=== PATIENT | female | born 1950 | race Caucasian/White ===

== ENCOUNTER 2017-12-01 14:39 | Emergency (ER) | payer OTHER, BC ==
--- NOTE | 2017-12-01 14:41 | PDOC ---
History of Present Illness - General History Source: Patient Exam Limitations: No Limitations - History of Present Illness Initial Comments: 12/01/17 15:12 The patient is a 67-year-old female with past medical history significant for DM , daily use of baby ASA, and hx of murmur presents to the emergency department with s/p a fall. 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 The patient was trying to picker machine operator some papers from the 2nd stair when she lost balance and slipped, causing an injury to the back of her head. The patient states she hit her head on the corner surface of a table nearby. The patient presents via EMS, with a small laceration to the back of the head. The patient reports associated symptom of a headache denies LOC or vomiting. The patient reports she took a baby ASA today. The patient is unable to recall her last tetanus shot. Denies nausea, vomiting, chest pain, SOB. Allergies: methotrexate and tetracycline PCP: None reported <Yamilka Ozuna - Last Filed: 12/01/17 15:30> <Andrew Castañeda - Last Filed: 12/01/17 16:35> - General Chief Complaint: Injury Stated Complaint: FELL OFF STAIRS Time Seen by Provider: 12/01/17 14:41 Past History - Past Medical History Diabetes: Yes Other medical history: Hx of heart murmur. <Yamilka Ozuna - Last Filed: 12/01/17 15:30> <Andrew Castañeda - Last Filed: 12/01/17 16:35> - Past Medical History Allergies/Adverse Reactions: Allergies Allergy/AdvReac Type Severity Reaction Status Date / Time methotrexate AdvReac Verified 12/01/17 15:05 tetracycline AdvReac Verified 12/01/17 15:05 Home Medications: Ambulatory Orders Aspirin [ASA -] 81 mg PO DAILY 12/01/17 Atorvastatin Ca [Lipitor] 20 mg PO HS 12/01/17 Calcium Carbonate [Calcium] 600 mg PO DAILY 12/01/17 Cholecalciferol (Vitamin D3) [Vitamin D3 -] 2,000 unit PO DAILY 12/01/17 Glyburide 5 mg PO BID 12/01/17 Magnesium 25 mg PO DAILY 12/01/17 Metformin HCl [Glucophage] 1,000 mg PO BID 12/01/17 Ranitidine HCl [Zantac] 150 mg PO DAILY 12/01/17 Review of Systems - Review of Systems Comments:: 12/01/17 14:57 Constitutional: Yes: Symptoms Reported, See HPI, Night Sweats. No: Chills, Diaphoresis, Fever, Loss of Appetite, Malaise, Weakness, Weight Stable, Unintentional Wgt. Loss, Unexplained wgt Loss, Other HEENTM: Yes: (+) s/p a fall with injury to the posterior head. Symptoms Reported , See HPI. No: Eye Pain, Blurred Vision, Tearing, Recent change in vision, Double Vision, Cataracts, Ear Pain, Ocular Prothesis, Ear Discharge, Nose Pain, Nose Congestion, Tinnitus, Nose Bleeding, Hearing Loss, Throat Pain, Throat Swelling, Mouth Pain, Dental Problems, Difficulty Swallowing, Mouth Swelling, Other Respiratory: Yes: Symptoms reported, See HPI. No: Cough, Orthopnea, Shortness of Breath, SOB with Exertion, SOB at Rest, Stridor, Wheezing, Productive cough, Hemoptysis, Other Cardiac (ROS): Yes: Symptoms Reported, See HPI. No: Chest Pain, Edema, Irregular Heart Rate, Lightheadedness, Palpitations, Syncope, Chest Tightness, Other ABD/GI: Yes: Symptoms Reported, See HPI. No: Abdominal Distended, Abd. Pain w/ defecation, Blood Streaked Bowels, Constipated, Diarrhea, Difficulty Swallowing , Nausea, Poor Appetite, Poor Fluid Intake, Rectal Bleeding, Vomiting, Indigestion, Abdominal cramping, Tarry Stools, Other : Yes: Symptoms Reported, See HPI Musculoskeletal: Yes: Symptoms Reported, See HPI. No: Back Pain, Gout, Joint Pain, Joint Swelling, Muscle Pain, Muscle Weakness, Neck Pain, Joint Stiffness, Other Integumentary: Yes: Symptoms Reported, See HPI. No: Bruising, Change in Color, Change in Hair/Nails, Dryness, Erythema, Flushing, Lesions, Lumps, Pallor, Pruritus, Rash, Sweating, Other Neurological: Yes: Symptoms reported, See HPI. No: Headache, Numbness, Paresthesia, Pre-Existing Deficit, Seizure, Tingling, Tremors, Weakness, Unsteady Gait, Ataxia, Dizziness, Other All Other Systems: Reviewed and Negative <Yamilka Ozuna - Last Filed: 12/01/17 15:30> *Physical Exam - Physical Exam Comments: 12/01/17 14:59 General Appearance: Yes: Appropriately Dressed, Nourished. No: Apparent Distress, Disheveled, Mild Distress, Moderate Distress, Severe Distress, Alcohol on Breath, Intoxicated, Cachetic, Obese, Thin, Other HEENT: positive: (+) 6 cm linear laceration to the occipital area with controlled bleeding, no swelling. EOMI, JAYDEN, Normal ENT Inspection, Normal Voice, TMs Normal, Pharynx Normal. negative: Symmetrical, Pale Conjunctivae, Photophobia, Scleral Icterus (R), Scleral Icterus (L), Muffled/Hoarse voice, Pharyngeal Erythema, Tonsillar Exudate, Tonsillar Erythema, Nasal Congestion, Rhinorrhea, Sinus Tenderness, Orbits, Hearing Decreased, Hearing Grossly Normal , TM Bulging, TM Dull, TM Erythema, Lesions, Parrish, Excessive drooling, Thrush, Other Neck: positive: Trachea midline, Normal Thyroid, Supple. negative: Tender, Rigid, Carotid bruit, Decreased range of motion, Stridor, Lymphadenopathy (R), Lymphadenopathy (L), Rigidity, Tender lateral, Tender midline, Thyromegaly, Other Respiratory/Chest: positive: Lungs Clear, Normal Breath Sounds. negative: Accessory Muscle Use, Chest Tender, Respiratory Distress, Labored Respiration, Rapid RR, Decreased Breath Sounds, Paradoxal Breathing, Crackles, Rales, Rhonchi , Stridor, Wheezing, Dullness, Hyperresonant, Plerual Rub, Other Cardiovascular: positive: (+)4/6 systolic ejection murmur. Regular Rate, Regular Rhythm, S1, S2. negative: Edema, JVD, Bradycardia, Tachycardia, Diastolic Murmur, Systolic Murmur, Gallop/S3, Gallop/S4, Irregularly Irregular, Irregular, Other Vascular Pulses: Femoral (R): 4+, Femoral (L): 4+, Carotid (R): 4+, Carotid (L) : 4+, Dorsalis-Pedis (R): 4+, Doralis-Pedis (L): 4+ Gastrointestinal/Abdominal: positive: Normal Bowel Sounds, Flat, Soft. negative : Tender, Organomegaly, Pulsatile Mass, Increased Bowel Sounds, Decreased BS, Protuberent, Distended, Guarding, Rebound, Tenderness, Hernia, Mass, Hepatomegaly, Spleenomegaly, Other Musculoskeletal: positive: Normal Inspection. negative: CVA Tenderness, CVA Tenderness (R), CVA Tenderness (L), Decreased Range of Motion, Muscle Spasm, Vertebral Tenderness, Other Extremity: positive: Normal Capillary Refill, Normal Inspection, Normal Range of Motion. negative: Tender, Pelvis Stable, Coldness, Cyanosis, Delayed Capillary Refill, Pedal Edema, Swelling, Calf Tenderness, Erythema, Inflammation , Other Integumentary: positive: Normal Color, Dry, Warm. 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 negative: Abnormal Cranial NS, Respond to painful stimul, Responsive, EOM Palsy, Facial Droop, Numbness, Sensory Deficit, Finger to Nose, Confused, Disoriented, Depressed Affect, Babinski, Other <Yamilka Ozuna - Last Filed: 12/01/17 15:30> Progress Note - Progress Note Progress Note: Procedure: 6 dyllan placed in occipital area pt tolerated procedure well. CT head Negative for fracture or bleed Pt is doing well, discussed with daughter as well Needs to remove dyllan in 7 days Head injury handout given If worsen to return to ER Also advised patient to follow up with her [facility] for her aortic stenosis <Andrew Castañeda - Last Filed: 12/01/17 16:35> *DC/Admit/Observation/Transfer - Attestations Scribe Attestion: 12/01/17 15:04 Documentation prepared by Yamilka Ozuna, acting as medical support assistant for Andrew Castañeda MD. <Yamilka Ozuna - Last Filed: 12/01/17 15:30> - Discharge Dispostion Decision to Admit order: No <Andrew Castañeda - Last Filed: 12/01/17 16:35> Diagnosis at time of Disposition: Head injury Qualifiers: Encounter type: initial encounter Qualified Code(s): S09.90XA - Unspecified injury of head, initial encounter Laceration of head Qualifiers: Encounter type: initial encounter Location of open wound of head: scalp Foreign body presence: without foreign body Qualified Code(s): S01.01XA - Laceration without foreign body of scalp, initial encounter - Discharge Dispostion Disposition: HOME Condition at time of disposition: Improved - Patient Instructions Printed Discharge Instructions: DI for Closed Head Injury, DI for Laceration Repair of the Scalp Additional Instructions: Ice, Tylenol, rest Head injury handout If worsen return to ER Remove dyllan in 7 days
[2017-12-01] MEDS ORDERED: DIPHTH,PERTUSS(ACELL),TET 0.5 ML DISP.SYRIN IM ONE (14:50)
[2017-12-01 15:01] VITALS: BP 172/83; PULSE 87; TEMP 98.3; BMI 29.2
== END 2017-12-01 16:53 | disposition home or self-care (01) ==
LOC: FER 14:39
PROC: 3E0234Z Introduction of Serum, Toxoid and Vaccine into Muscle, Percutaneous Approach (ICD-10-PCS; principal; 2017-12-01)
PROC: 0HQ0XZZ Repair Scalp Skin, External Approach (ICD-10-PCS; 2017-12-01)
DX: S01.01XA Laceration without foreign body of scalp, initial encounter (principal); S09.90XA Unspecified injury of head, initial encounter; E11.9 Type 2 diabetes mellitus without complications; Z79.82 Long term (current) use of aspirin; W10.9XXA Fall (on) (from) unspecified stairs and steps, initial encounter; Y93.89 Activity, other specified; Y92.008 Other place in unspecified non-institutional (private) residence as the place of occurrence of the external cause; R01.1 Cardiac murmur, unspecified; Z95.5 Presence of coronary angioplasty implant and graft
CPT/HCPCS: 70450-TC; 90715; 99282-25

== ENCOUNTER 2018-04-26 11:08 | Emergency (ER) | payer OTHER ==
--- NOTE | 2018-04-26 11:12 | PDOC ---
History of Present Illness - General Chief Complaint: Toothache Stated Complaint: SWOLLEN SALIVARY GLAND Time Seen by Provider: 04/26/18 11:11 History Source: Patient - History of Present Illness Initial Comments: 04/26/18 11:22 The patient is a 68 year old female with a PMH of NIDDM, Rheumatoid Arthritis, GERD, Heart Murmur who presents to our ED c/o tongue swelling and right submandibular gland swelling. Patient started feeling the pain in her gums and jaw on and went to her dentist. Her dentist sent her to an oral surgeon who took a cat scan and found a stone in her L submandibular gland. Patient was started on Augmentin (875 mg BID) and scheduled for surgery on May. States she came to the ED today because the pain increased and she felt her tongue was swelling and she was having difficulty swallowing. Reports fever of 100 degrees Farenheit yesterday evening for which she took Tylenol. The patient denies chest pain, shortness of breath, abdominal pain, nausea/ vomiting, diarrhea/constipation,dysuria/hematuria. Allergy: Epinephrine, MTX, Tetracycline (rectal bleed) Surgical: Cholecystectomy, L ankle fracture pinning Social: denies toxic habits PMD: Dr. Andrew Contreras (cardiology, however patient sees cardiology for primary care) Oral surgeon: Rakesh Russo As per EMR, patient last evaluated in our ED in 12/2017 for scalp staple removal following a mechanical fall. Past History - Past Medical History Allergies/Adverse Reactions: Allergies Allergy/AdvReac Type Severity Reaction Status Date / Time epinephrine Allergy Unknown Verified 04/26/18 11:10 methotrexate AdvReac Verified 04/26/18 11:10 tetracycline AdvReac Verified 04/26/18 11:10 Home Medications: Ambulatory Orders Aspirin [ASA -] 81 mg PO DAILY 12/01/17 Atorvastatin Ca [Lipitor] 20 mg PO HS 12/01/17 Calcium Carbonate [Calcium] 600 mg PO DAILY 12/01/17 Cholecalciferol (Vitamin D3) [Vitamin D3 -] 2,000 unit PO DAILY 12/01/17 Glyburide 5 mg PO DAILY 12/01/17 Magnesium 25 mg PO DAILY 12/01/17 Metformin HCl [Glucophage] 1,000 mg PO BID 12/01/17 Ranitidine HCl [Zantac] 150 mg PO BID 12/01/17 Amoxicillin/Potassium Clav [Augmentin 875-125 Tablet] 1 each PO BID 04/26/18 Ascorbate Calcium [Vitamin C] 500 mg PO DAILY 04/26/18 Bimatoprost [Lumigan] 1 drop OS DAILY 04/26/18 Brimonidine Tartrate/Timolol [Combigan Eye Drops] 1 drop OU BID 04/26/18 Etanercept [Enbrel] 50 mg SQ WEEKLY 04/26/18 Glyburide 10 mg PO HS 04/26/18 COPD: No Diabetes: Yes - Suicide/Smoking/Psychosocial Hx Smoking History: Never smoked Have you smoked in the past 12 months: No Hx Alcohol Use: No Drug/Substance Use Hx: No Substance Use Type: None Review of Systems - Review of Systems Constitutional: Yes: Fever. No: Chills HEENTM: No: Recent change in vision Respiratory: No: Cough, Shortness of Breath, Stridor, Wheezing Cardiac (ROS): No: Chest Pain, Lightheadedness, Palpitations, Syncope ABD/GI: No: Constipated, Diarrhea, Nausea, Vomiting *Physical Exam - Physical Exam General Appearance: Yes: Nourished, Appropriately Dressed HEENT: positive: Normal Voice, Hearing Grossly Normal, Other (L submandidbular TTP and edema, with palpable non-fluctuant mass; hematoma @ 5'o clock position with area of purulence on floor of oral cavity) Neck: positive: Trachea midline, Supple Respiratory/Chest: positive: Lungs Clear, Normal Breath Sounds Cardiovascular: positive: S1, S2, Murmur Gastrointestinal/Abdominal: positive: Normal Bowel Sounds, Soft Extremity: positive: Normal Capillary Refill, Normal Inspection Integumentary: positive: Normal Color, Dry, Warm Neurologic: positive: Fully Oriented, Alert ED Treatment Course - LABORATORY CBC & Chemistry Diagram: 04/26/18 12:30 04/26/18 12:30 Medical Decision Making - Medical Decision Making 04/26/18 11:26 68 year old female with L submandibular swelling and pain, h/o fever. States she was evaluated with facial CT that showed submandibular gland stone, scheduled for surgery on 05/09/17. Mildly tachycardic (HR 103), Hypertensive (169 /88) other VS unremarkable. L submandibular TTP, no erythema/edema, with hematoma and small purulent discharge in floor of oral cavity. As patient is currently afebrile, no signs of infection outside of sialdeniatis, will give pain control and discuss case with oral surgeon. Likely disposition is discharge home. 04/26/18 11:[address] Hoffmann 04/26/18 11:37 Case d/w Dr. Aramis Bo, ENT - states operative intervention by oral surgeon, not ENT 04/26/18 11:57 Patient reassessed @ bedside s/p Tylenol for pain Counseled on plan of care including possible discharge and self transport to [facility] vs. admission for IV antibiotics vs. 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 Patient is hemodynamically stable, pain well controlled. Awaiting call from patient's surgeon 04/26/18 12:11 Case d/w patient's surgeon - agrees with OTD of Unasym and discharge home 04/26/18 12:13 Case d/w patient amenable with plan of care 04/26/18 13:38 CBC shows leukocytosis 15, c/w active infection CMP unremarkable 04/26/18 13:58 VSS Symptomatically improved. Will discharge with instruction to f[facility] [facility] [place] [place] if symptoms persist or with oral surgeon after the weekend. Clinical Impression: Sialadenitis I discussed the physical exam findings, ancillary test results and final diagnoses with the patient. I answered all of the patient's questions. The patient was satisfied with the care received and felt comfortable with the discharge plan and treatment plan. The patient will return to the Emergency Department with any new, persistent or worsening symptoms. *DC/Admit/Observation/Transfer Diagnosis at time of Disposition: Sialadenitis - Discharge Dispostion Disposition: HOME Condition at time of disposition: Good - Referrals Referrals: Andrew Contreras [Primary Care Provider] - - Patient Instructions Printed Discharge Instructions: DI for Dental Pain Additional Instructions: Please keep your previously scheduled follow up appointment with the oral surgeon Return to the Emergency Department immediately for any new/worsening/concerning symptoms including continous fever or severe pain. - Post Discharge Activity
--- NOTE | 2018-04-26 11:14 | PDOC ---
Attending Attestation - Resident Resident Name: PilarKaren - ED Attending Attestation I have performed the following: I have examined & evaluated the patient, The case was reviewed & discussed with the resident, I agree w/resident's findings & plan, Exceptions are as noted - HPI HPI: 04/26/18 12:46 Ms Iyer is a 68 yo F who presents to the ER for evaluation of a swollen salivary gland Pt was seen by OMFS yesterday who discovered a stone in the salivary duct, started pt on Augmentin Pt was told to come to the ER if her symptoms worsen Pt reports getting a fever yesterday and opted to come in to the ER for assessment Currently no fevers or chills No difficulty breathing, drooling, voice changes Allergy: Epinephrine, MTX, Tetracycline (rectal bleed) Surgical: Cholecystectomy, L ankle fracture pinning Social: denies drug/tobacco Oral surgeon: Rakesh Russo - Physicial Exam PE: 04/26/18 12:49 General Appearance: Yes: Nourished, Appropriately Dressed HEENT: Normal Voice, Hearing Grossly Normal, Other (L submandidbular TTP and edema, with palpable non-fluctuant mass) Neck: Trachea midline, Supple Respiratory/Chest: Lungs Clear, Normal Breath Sounds Cardiovascular: RRR, S1, S2, Murmur Gastrointestinal/Abdominal: Normal Bowel Sounds, Soft Extremity: Normal Capillary Refill, Normal Inspection Integumentary: positive: Normal Color, Dry, Warm - Medical Decision Making 04/26/18 12:50 Case reviewed with He state pt should be treated by her established FS surgeon Call placed to Dr Russo She can not be treated at [facility] He recommends labs and IV abx Pt can be discharged to home Continue Augmentin Return to the ER for any worsening of symptoms 04/26/18 13:01 04/26/18 13:09 Laboratory Tests 04/26/18 12:30 WBC 15.0 H Hgb 12.9 Hct 39.7 Plt Count 282 Laboratory Tests 04/26/18 12:30 Sodium 133 L Potassium 4.5 Chloride 100 Carbon Dioxide 23 Anion Gap 10 BUN 12 Creatinine 0.8 Random Glucose 303 H* Pt called reporting that the area under her tongue increased in size, appeared to be a blood blister. Pt asked to return to the ER for re assessment Floor of the mouth on the left side with 1 cm hematoma and 1 cm purulent collection. ? stone visible Pt offered to be transferred to [facility] or [facility] Pt refuses transfer to [facility] as her there. Pt refuses transfer to [facility]. She was encouraged to go to [place] where her OMFS surgeon/partners practice Pt understands the importance of this follow up IMMEDIATELY Clinical Impression: sialolithiasis, initial presentation submandibular gland abscess, initial presentation 04/27/18 07:46
[2018-04-26 11:28] VITALS: BMI 29.1
[2018-04-26] MEDS ORDERED: ACETAMINOPHEN 500 MG TABLET (FP) PO ONE (11:37)
[2018-04-26] MEDS ORDERED: ACETAMINOPHEN 500 MG TABLET (FP) ONE (11:38)
[2018-04-26] MEDS ORDERED: AMPICILLIN NA/SULBACTAM NA 3 GM in SODIUM CHLORIDE 100 ML IVPB ONE (12:11)
[2018-04-26] MEDS ORDERED: AMPICILLIN NA/SULBACTAM NA 3 GM VIAL ONE (12:17)
[2018-04-26 12:51] LABS: HEMATOCRIT 39.7 % (32.4-45.2); HEMOGLOBIN 12.9 GM/dl (10.7-15.3); MCH 28.1 pg (25.7-33.7); MCHC 32.6 g/dl (32.0-36.0); MEAN CELL VOLUME 86.1 fl (80-96); PLATELET COUNT 282 K/MM3 (134-434); RBC 4.61 M/mm3 (3.60-5.2); RDW 12.5 % (11.6-15.6)
[2018-04-26 12:58] LABS: ALBUMIN 3.9 g/dl (3.4-5.0); ALK PHOS 90 U/L (45-117); ANION GAP 10 MMOL/L (8-16); BILIRUBIN,TOTAL 0.8 mg/dl (0.2-1); BLOOD UREA NITROGEN 12 mg/dl (7-18); CHLORIDE 100 mmol/L (98-107); CO2 23 mmol/L (21-32); CREATININE 0.8 mg/dl (0.55-1.3); POTASSIUM 4.5 mmol/L (3.5-5.1); SGOT/AST 26 U/L (15-37); SGPT/ALT 24 U/L (13-61); SODIUM 133 mmol/L (136-145); TOT PROT 7.8 g/dl (6.4-8.2)
[2018-04-26 13:13] VITALS: BP 142/74; PULSE 95; TEMP 99
[2018-04-26 13:17] LABS: GLUCOSE,RANDOM 303 mg/dl (74-106)
[2018-04-26 15:41] LABS: PLATELET ESTIMATE ADEQUATE
== END 2018-04-26 13:38 | disposition home or self-care (01) ==
LOC: FER 11:08
DX: K11.20 Sialoadenitis, unspecified (principal); E11.9 Type 2 diabetes mellitus without complications; K21.9 Gastro-esophageal reflux disease without esophagitis; R01.1 Cardiac murmur, unspecified; M06.9 Rheumatoid arthritis, unspecified
CPT/HCPCS: 36415; 80053; 85025; 99283-25

== ENCOUNTER 2021-01-09 20:18 | Emergency (ER) | payer OTHER, BC ==
[2021-01-09 22:50] VITALS: BP 180/84; PULSE 90; TEMP 98; BMI 29.3
== END 2021-01-09 22:51 | disposition home or self-care (01) ==
LOC: FER 20:18
DX: S02.2XXA Fracture of nasal bones, initial encounter for closed fracture (principal); S63.501A Unspecified sprain of right wrist, initial encounter; S80.01XA Contusion of right knee, initial encounter; S80.211A Abrasion, right knee, initial encounter; S60.512A Abrasion of left hand, initial encounter; W19.XXXA Unspecified fall, initial encounter; Y92.9 Unspecified place or not applicable
CPT/HCPCS: 70160-TC-FY; 70450-TC; 73110-TC-LT-FY; 73110-TC-RT-FY; 73130-TC-LT-FY; 73130-TC-RT-FY; 73560-TC-RT-FY; 99284-25